=== PATIENT | male | born 1990 | race Caucasian/White ===

== ENCOUNTER → 2018-11-16 10:44 | Outpatient (CLI) | payer BC, SELFPAY ==
--- NOTE | 2018-11-16 10:48 | US_ITS ---
US Testicular CLINICAL INDICATION: Scrotal swelling and left-sided tenderness ITS.REASON: SCTROTAL SWELLING ORDERING PHYSICIAN: Luz Santiago MD PATIENT AGE: 27 years Comparison: None FINDINGS: The right testicle measures 3.6 x 1.9 x 2.2 cm. No mass evident. There is testicular blood flow. There is a small right hydrocele The left testicle is 3.2 x 1.5 x 2.2 cm. Blood flow is present. No mass is apparent. There is a small left hydrocele and small left varicocele. IMPRESSION: 1. Small bilateral hydroceles and small left varicocele 2. No testicular mass. There is bilateral testicular blood flow
== END ==
PROVIDERS: PCP Emergency Medicine; Visit Provider Emergency Medicine
DX: N50.89 Other specified disorders of the male genital organs (principal)
CPT/HCPCS: 76870

== ENCOUNTER 2021-06-11 15:46 | Emergency (ER) | payer BC, SELFPAY ==
[2021-06-11 16:24] VITALS: BP 123/64; PULSE 72; RESP 14; TEMP 36.6; O2SAT 98; BMI 29.7
--- NOTE | 2021-06-11 16:25 | XR_ITS ---
PROCEDURE: XR HAND RT MIN 3V CLINICAL INDICATION: smashed thumb COMPARISON: No exams were available for comparison FINDINGS: No fracture or dislocation. No lytic or blastic change. There is normal mineralization. The joint spaces are well-preserved. No significant degenerative/arthritic changes. No erosive changes evident. Other findings:None. IMPRESSION: No acute findings. Dictated by: Matthew Grimes MD 06/11/2021 16:47 Matthew Grimes MD in [place] 06/11/2021 16:47
--- NOTE | 2021-06-11 16:50 | HMH.EDUTC ---
[facility] – [place] Disposition Clinical Impression: Thumb contusion Qualifiers: Encounter type: initial encounter Damage to nail status: without damage Laterality: right Qualified Code(s): S60.011A - Contusion of right thumb without damage to nail, initial encounter Disposition: Home, Self-Care Condition on Discharge: Good Additional Instructions: *RICE, Rest the extremity, Ice 15-20 minutes 3-4 times daily, Compress- wear the sanjana wrap as discussed as much as possible to help reduce swelling and pain, Elevate the extremity when at rest *finger splint is for support and help control swelling, use it except in the shower. Be sure that is not to tight but not to loose either *Elevate when resting *Ibuprofen as directed on package every 6-8 hours as needed for pain an inflammation. If need something more can take Tylenol in between doses of Ibuprofen to help Immediately follow up with your family doctor for new or worsening of symptoms, or no noticeable improvement over the next 3-5 days Return if bruising in nail bed area worsens Straight to ER if any life threatening symptoms Referrals: Moises Hua [Primary Care Provider] - As needed Time of Disposition: 16:59 Medical Decision Making - [place] Inquiry Pt receiving controlled substance: No [place] was queried for this patient: No Vital Signs: 06/11/21 16:24 Temperature 98 F Temperature Source Temporal Artery Scan Pulse Rate [Left] 72 Respiratory Rate 14 Blood Pressure [Right Arm] 123/64 Blood Pressure Mean [Right Arm] 83 02 Sat by Pulse Oximetry 98 - Radiology Data #1 Image(s): Hand Image Reviewed: Yes I have reviewed radiologist's interpretation No acute findings. [facility] – [place] HPI - General Chief complaint: Extremity Injury, Upper Stated complaint: caught R thumb in coyote trap Time Seen by Provider: 06/11/21 16:50 Mode of Arrival: Ambulatory Source of Information: Patient Limitations: No Limitations Description of Symptoms (Recalled from Triage Doc. by RN): pt states he got his L thumb caught in a coyote trap. pts L thumbnail is blue, all skin is intact, no deformity. HEENT Symptoms (Recalled from RN notes): No Resp Symptoms (Recalled from RN notes): No Skin Symptoms (Recalled from RN notes): No MS Symptoms (Recalled from RN notes): Yes (R thumb pain and bruising on thumbnail) Functional Status (Recalled from RN notes): wnl - History of Present Illness Provider Complaint: Patient states that he accidently smashed his right thumb in a coyote trap he was setting States that he was able to get it out quickly but noticed he was having bruising at the base of his thumbnail area and on his upper thumb - Related Data Allergies Allergy/AdvReac Type Severity Reaction Status Date / Time No Known Allergies Allergy Verified 12/28/18 10:22 - Worker's Comp Is this a Worker's Comp case?: No [facility] History - Hepatitis A Screen Drug use history?: No High risk sexual behaviors?: No History of sexually transmitted infection?: No Currently employed?: No Childcare worker?: No Do you have indoor plumbing?: Yes Do you have electricity?: Yes Attestation statement:: This patient has been screened for Hepatitis A risk factors. I have reviewed the patient's past medical history: Yes Medical History: Denies:: Cancer, Diabetes Mellitus Type 1, Diabetes Mellitus Type 2, MRSA Amputation: No Fractures: No Comment: kidney stone lasered 2012 - Social History Smoking Status: Never smoker Alcohol Intake: never Occupational Status: employed Family Hx:: Diabetes, Heart Attack, Thyroid Disorder ROS Obtained: Yes All systems reviewed & no additional complaints, Yes Systems reviewed as appropriate & no additional complaints - Constitutional Constitutional: Reports system reviewed and no additional complaints, except as docu, Denies body ache, Denies chills, Denies fever(s) - ENT Ears, Nose, Mouth, and Throat: Reports system reviewed and no additional complaints, except as docu -
[2021-06-11 17:06] VITALS: BP 123/64; PULSE 72; RESP 14; TEMP 36.6
== END 2021-06-11 17:08 | disposition home or self-care (01) ==
LOC: ER 16:15 → UTC 16:24
PROVIDERS: Emergency Provider Nurse Practitioner; PCP Family Medicine
DX: S60.011A Contusion of right thumb without damage to nail, initial encounter (principal); W23.0XXA Caught, crushed, jammed, or pinched between moving objects, initial encounter; Y92.89 Other specified places as the place of occurrence of the external cause
CPT/HCPCS: 73130; 99202; G0463